=== PATIENT | female | born 1960 | race Caucasian/White ===

== ENCOUNTER 2016-10-14 22:44 | Emergency (ER) | payer BC ==
[~2016-10-14] VITALS: Ht 165.1 cm; Wt 66.7 kg
[2016-10-14 22:45] VITALS: BP_SYST 127
[2016-10-15] MEDS ORDERED: LORazepam 2 MG/ML VIAL (FOR ER USE) IM ONE (01:15)
[2016-10-15 03:03] VITALS: BP_SYST 120
== END 2016-10-15 03:03 | disposition home or self-care (01) ==
LOC: SED 22:44
DX: S86.911A Strain of unspecified muscle(s) and tendon(s) at lower leg level, right leg, initial encounter (principal); I10 Essential (primary) hypertension; Z88.6 Allergy status to analgesic agent; Z90.710 Acquired absence of both cervix and uterus; X58.XXXA Exposure to other specified factors, initial encounter; Y93.89 Activity, other specified; Y92.89 Other specified places as the place of occurrence of the external cause; Y99.8 Other external cause status
CPT/HCPCS: 93971; 96372; 99284; J2060

== ENCOUNTER 2017-05-31 19:32 | Emergency (ER) | payer BC, OTHER ==
[~2017-05-31] VITALS: Ht 165.1 cm; Wt 67.6 kg
[2017-05-31 19:40] VITALS: BP_SYST 153
--- NOTE | 2017-05-31 19:52 | NUR ---
Note [place] in EDM - 05/31/17 at 2152 by ALEJANDRO Patient presented to ED c/o sharp, stabbing pain to L chest radiating to back, 6/10 pain level, pain started this afternoon. Patient AAO x 4. No SOB or acute distress noted. Daughter at bedside. Will continue to monitor.
--- NOTE | 2017-05-31 19:58 | NUR ---
Patient to ER bed 4 to gown for evaluation. Side rails up. Report given to LAUREN AYALA AND LAUREN REDMAN.
--- NOTE | 2017-05-31 20:05 | NUR ---
ER Dr. Garcia at bedside examining patient.
--- NOTE | 2017-05-31 20:12 | NUR ---
Patient presented to ED c/o sharp, stabbing pain to L chest radiating to back, 6/10 pain level, pain started this afternoon. Patient AAO x 4. No SOB or acute distress noted. Daughter at bedside. Will continue to monitor.
[2017-05-31] MEDS ORDERED: DIAZEPAM 5 MG TABLET (VALIUM) PO ONE (22:00)
[2017-05-31] MEDS ORDERED: ONDANSETRON 4 MG ODT TAB PO ONE (22:00)
[2017-05-31] MEDS ORDERED: MORPHINE 4 MG/ML INJ. SYRINGE IM ONE (22:00)
--- NOTE | 2017-05-31 22:50 | NUR ---
Patient VS stable. No SOB or acute distress noted. Patient re-educated on pain management, POC discussed with daughter at bedside. Will continue to monitor.
--- NOTE | 2017-05-31 23:00 | NUR ---
ED MD Garcia at bedside reassessing patient.
[2017-05-31 23:23] VITALS: BP_SYST 132
--- NOTE | 2017-05-31 23:23 | NUR ---
Patient given written and verbal discharge instructions and verbalizes understanding. ER MD discussed with patient the results and treatment provided. Patient in stable condition. ID arm band removed. Rx of [place] and Ibuprofen given. Patient educated on pain management and to follow up with PMD. Pain Scale 2/10. Opportunity for questions provided and answered. Medication side effect fact sheet provided.
== END 2017-05-31 23:23 | disposition home or self-care (01) ==
LOC: SED 19:32
DX: M54.9 Dorsalgia, unspecified (principal); R06.02 Shortness of breath; J45.909 Unspecified asthma, uncomplicated; I10 Essential (primary) hypertension; Z88.5 Allergy status to narcotic agent; Z88.8 Allergy status to other drugs, medicaments and biological substances
CPT/HCPCS: 93005; 96372; 99283; J2270; Q0162

== ENCOUNTER 2018-01-03 01:03 | Emergency (ER) | payer OTHER ==
[~2018-01-03] VITALS: Ht 165.1 cm; Wt 64.0 kg
[2018-01-03 01:10] VITALS: BP_SYST 142
[2018-01-03] MEDS ORDERED: cefTRIAXone 1 GM in D5W 50 ML IV SCH ×2 (01:15→09:00)
[2018-01-03] MEDS ORDERED: MORPHINE 2 MG/ML INJ. SYRINGE IVP PRN (01:15)
[2018-01-03 01:54] VITALS: BP_SYST 134
== END 2018-01-03 01:54 | disposition home or self-care (01) ==
LOC: SED 01:03
DX: S06.9X9A Unspecified intracranial injury with loss of consciousness of unspecified duration, initial encounter (principal); S16.1XXA Strain of muscle, fascia and tendon at neck level, initial encounter; S50.02XA Contusion of left elbow, initial encounter; Z88.6 Allergy status to analgesic agent; Z90.710 Acquired absence of both cervix and uterus; Z90.49 Acquired absence of other specified parts of digestive tract; Z98.890 Other specified postprocedural states; W18.30XA Fall on same level, unspecified, initial encounter; Y93.89 Activity, other specified; Y92.89 Other specified places as the place of occurrence of the external cause; Y99.8 Other external cause status
CPT/HCPCS: 99281